=== PATIENT | male | born 1980 | race Caucasian/White ===

== ENCOUNTER 2019-04-11 11:13 | Emergency (ER) | payer OTHER ==
[2019-04-11] MEDS ORDERED: IBUPROFEN 400 MG TABLET (FP) PO ONE (11:56)
--- NOTE | 2019-04-11 11:56 | PDOC ---
Rapid Medical Evaluation Time Seen by Provider: 04/11/19 11:53 Medical Evaluation: 04/11/19 11:54 I have performed a brief in-person evaluation of this patient. The patient presents with a chief complaint of: left ankle pain s/p injury playing bball Pertinent physical exam findings: swelling/tenderness to left lat malleolus I have ordered the following: x-ray, motrin The patient will proceed to the ED for further evaluation.
[2019-04-11 11:58] VITALS: BP 98/68; PULSE 91; TEMP 98.6; BMI 35.9
--- NOTE | 2019-04-11 13:07 | PDOC ---
History of Present Illness - General Chief Complaint: Injury Stated Complaint: LT ANKLE INJURY Time Seen by Provider: 04/11/19 11:53 History Source: Patient Exam Limitations: No Limitations - History of Present Illness Initial Comments: 04/11/19 13:11 HISTORY OF PRESENT ILLNESS: 39-year-old male denies medical history who presents emergency department for evaluation of left ankle pain while playing basketball today. Patient reports he jumped up to get the ball and when he landed he suffered an inversion injury of his left foot and fell to the ground. Patient was immediately ambulatory able to get off the court without difficulty. Patient drove himself to the emergency department for evaluation. No recent travel or sick contacts. PAST MEDICAL HISTORY: Denies past medical history SURGICAL HISTORY: Denies ALLERGIES: No known drug allergies REVIEW OF SYSTEMS General/Constitutional: Denies fever or chills. Denies weakness, weight change. HEENT: Denies change in vision. Denies ear pain or discharge. Denies sore throat. Cardiovascular: Denies chest pain or shortness of breath. Respiratory: Denies cough, wheezing, or hemoptysis. Gastrointestinal: Denies nausea, vomiting, diarrhea or constipation. Denies rectal bleeding. Genitourinary: Denies dysuria, frequency, or change in urination. Musculoskeletal: see HPI Skin and breasts: Denies rash or easy bruising. Neurologic: Denies headache, vertigo, loss of consciousness, or loss of sensation. Psychiatric: Denies depression or anxiety. Endocrine: Denies increased thirst. Denies abnormal weight change. Hematologic/Lymphatic: Denies anemia, easy bleeding, or history of blood clots. Allergic/Immunologic: Denies hives or skin allergy. Denies latex allergy. PHYSICAL EXAM General Appearance: Well-appearing, appropriately dressed. No apparent distress , no intoxication. HEENT: EOMI, PERRLA, normal ENT inspection, normal voice, TMs normal, pharynx normal. No conjunctival pallor. No photophobia, scleral icterus. Neck: Supple. Trachea midline. No tenderness, rigidity, carotid bruit, stridor , lymphadenopathy, or thyromegaly. Respiratory/Chest: Lungs CTAB. No shortness of breath, chest tenderness, respiratory distress, accessory muscle use. No crackles, rales, rhonchi, stridor , wheezing, dullness Cardiovascular: RRR. S1, S2. No JVD, murmur, bradycardia, tachycardia. Vascular Pulses: Dorsalis-Pedis (R): 2+, Dorsalis-Pedis (L): 2+ Gastrointestinal/Abdominal: Normal bowel sounds. Abdomen soft, non-distended. No tenderness or rebound tenderness. No organomegaly, pulsatile mass, guarding, hernia, hepatomegaly, splenomegaly. Lymphatic: No adenopathy, tenderness. Musculoskeletal/Extremities: FAROM of all extremities, normal capillary refill. No tenderness to extremities, pedal edema, swelling, erythema or deformity. Mild tenderness present over the lateral aspect of the left midfoot. No tenderness, crepitus or step offs to calcaneus, base of the fifth metatarsal , navicular bone or lateral or medial malleolus of the left foot. Neurovascular intact. Integumentary: Appropriate color, dry, warm. No cyanosis, erythema, jaundice or rash Neurologic: tape recorder mechanic II-XII intact. Fully oriented, alert. Appropriate mood/affect. Motor strength 5/5. No appreciable EOM palsy, facial droop or sensory deficit. Past History - Past Medical History Allergies/Adverse Reactions: Allergies Allergy/AdvReac Type Severity Reaction Status Date / Time No Known Allergies Allergy Verified 04/11/19 12:50 Home Medications: Ambulatory Orders NK [No Known Home Medication] 04/11/19 COPD: No - Immunization History Immunization Up to Date: No - Suicide/Smoking/Psychosocial Hx Smoking History: Never smoked Hx Alcohol Use: No Drug/Substance Use Hx: No *Physical Exam - Vital Signs Last Vital Signs Temp Pulse Resp BP Pulse Ox 98.6 F 91 H 18 98/68 95 04/11/19 11:54 04/11/19 11:54 04/11/19 11:54 04/11/19 11:54 04/11/19 11:54 ED Treatment Course - Medications Given in the ED: ED Medications Discontinued Medications Generic Name Dose Route Start Last Admin Trade Name Freq PRN Reason Stop Dose Admin Ibuprofen 800 mg 04/11/19 11:56 04/11/19 12:48 Motrin - PO 04/11/19 11:57 800 mg ONCE ONE Administration Medical Decision Making - Medical Decision Making 04/11/19 13:09 A/P: 39-year-old male with left ankle pain status post inversion of the foot while playing basketball Tender to palpation over the lateral aspect of the midfoot with appreciable swelling present to this area No deformity present No tenderness to palpation over the base of the fifth metatarsal, navicular bone , calcaneus or bilateral malleolus of the right ankle/foot X-rays as read by me: No acute fractures or dislocations present. Soft tissue swelling present to the lateral aspect of the left foot I'll discharge patient home with Dre wrap, Aircast, crutches and to follow-up with orthopedist. I discussed the physical exam findings, ancillary test results and final diagnoses with the patient. I answered all of the patient's questions. The patient was satisfied with the care received and felt comfortable with the discharge plan and treatment plan. The patient will call their primary care physician within 24 hours to arrange follow-up and will return to the Emergency Department with any new, persistent or worsening symptoms. *DC/Admit/Observation/Transfer Diagnosis at time of Disposition: Left ankle injury Qualifiers: Encounter type: initial encounter Qualified Code(s): S99.912A - Unspecified injury of left ankle, initial encounter - Discharge Dispostion Disposition: HOME Condition at time of disposition: Fair Decision to Admit order: No - Referrals Referrals: Adama Diaz [Primary Care Provider] - Cedrick Cabrera MD [Staff Physician] - - Patient Instructions Additional Instructions: Take Tylenol or Motrin as needed for pain. Follow manufacturers instructions for appropriate dosage. Try not to walk or bear weight on your left ankle as much as possible for the next 3 days. Apply ice for 20 minutes and removed for at least 20 minutes before reapplying the ice. Keep Dre wrap on your ankle as much as possible to help decrease some of the swelling control pain. Whenever possible keep your foot elevated to decrease swelling to your ankle. You've been given the number for an orthopedist. If symptoms do not resolve within the next 7 days call the orthopedist for further evaluation. Return to emergency department for discoloration of the foot, numbness or tingling to the foot, worsening pain, or any other concerns. Thank you very much for choosing us to provide your emergent healthcare needs. - Post Discharge Activity Forms/Work/School Notes: Back to Work
== END 2019-04-11 13:16 | disposition home or self-care (01) ==
LOC: JERFT 11:13
PROC: 2W3RX1Z Immobilization of Left Lower Leg using Splint (ICD-10-PCS; principal; 2019-04-11)
DX: S99.812A Other specified injuries of left ankle, initial encounter (principal); W17.89XA Other fall from one level to another, initial encounter; Y93.67 Activity, basketball; Y92.310 Basketball court as the place of occurrence of the external cause; Y99.8 Other external cause status
CPT/HCPCS: 73610-TC-LT-FY; 73630-TC-LT; 99281-25